=== PATIENT | male | born 1955 | race African-American/Black ===

== ENCOUNTER → 2019-03-29 | Outpatient (CLI) | payer BC ==
--- NOTE | 2019-03-29 13:55 | PCVCIMAG ---
APPROVED REPORT Study performed: 03/29/2019 11:00:50 EXAM: Comprehensive 2D, Doppler, and color-flow Echocardiogram Patient Location: Echo lab Room #: 3Status: routine BSA: 1.64 HR: 54 bpmBP: 134/70 mmHg Rhythm: NSR Other Information Study Quality: Good Risk Factors: Cardiac Risk Factors: Hyperlipidemia, HTN, Smoking Indications CAD Cardiomyopathy Hypertension/HDD ESRD 2D Dimensions IVSd: 16.89 (7-11mm)LVOT Diam: 20.00 (18-24mm) LVDd: 35.05 mm PWd: 15.50 (7-11mm)Ascending Ao: 28.96 (22-36mm) LVDs: 22.20 (25-40mm) Left Atrium: 30.95 (27-40mm) Aortic Root: 31.57 mm LV Single Plane 4CH: 57.20 % LV Single Plane 2CH: 57.69 % Biplane EF: 59.2 % Volumes Left Atrial Volume (Systole) Single Plane 4CH: 45.29 mLSingle Plane 2CH: 59.58 mL LA ESV Index: 36.00 mL/m2 Aortic Valve AoV Peak Ramirez.: 1.86 m/s AO Peak Gr.: 13.88 mmHgLVOT Max P.78 mmHg LVOT Max V: 1.09 m/s CHING Vmax: 1.75 cm2 AI Vmax: 4.41 m/s AI Crowley: 0.89 m/s2 AI PHT: 1531.12 ms Mitral Valve E/A Ratio: 0.9 MV Decel. Time: 259.26 ms MV E Max Ramirez.: 0.68 m/s MV A Ramirez.: 0.73 m/s IVRT: 65.74 ms TDI E/Lateral E': 11.33E/Medial E': 17.00 Medial E' Ramirez.: 0.04 m/s Lateral E' Ramirez.: 0.06 m/s Pulmonary Valve PV Peak Ramirez.: 0.57 m/sPV Peak Gr.: 1.32 mmHg Pulmonary Vein P Vein S: 0.63 m/sP Vein A: 0.32 m/s P Vein D: 0.48 m/sP Vein A Dur.: 86.5 msec P Vein S/D Ratio: 1.31 Tricuspid Valve TR Peak Ramirez.: 2.18 m/sRAP Estimate: 7.00 mmHg TR Peak Gr.: 18.93 mmHg PA Pressure: 26.00 mmHg Left Ventricle The left ventricle is normal size. There is normal LV segmental wall motion. Severe concentric left ventricular hypertrophy. Left ventricular systolic function is normal. The left ventricular ejection fraction is within the normal range. LVEF is 55%. The left ventricular diastolic function is normal. Right Ventricle The right ventricle is normal size. The right ventricular systolic function is normal. Atria Left atrium is mildly dilated. The right atrium size is normal. Aortic Valve The Aortic valve is sclerotic. Mild aortic regurgitation. There is no aortic valvular stenosis. Mitral Valve The mitral valve is normal in structure. Trace mitral regurgitation. No evidence of mitral valve stenosis. Tricuspid Valve The tricuspid valve is normal in structure. Trace tricuspid regurgitation. Pulmonary artery pressure is 26 mmHg. Pulmonic Valve The pulmonary valve is normal in structure. There is no pulmonic valvular regurgitation. Great Vessels The aortic root is normal in size. The ascending aorta is normal in size. IVC is normal in size and collapses >50% with inspiration. Pericardium There is no pericardial effusion. <Conclusion> The left ventricle is normal size. Severe concentric left ventricular hypertrophy. LVEF is 55%. The left ventricular diastolic function is normal. The right ventricle is normal size. Left atrium is mildly dilated. The Aortic valve is sclerotic. Mild aortic regurgitation. Trace mitral regurgitation. Trace tricuspid regurgitation. Pulmonary artery pressure is 26 mmHg. The aortic root is normal in size. There is no pericardial effusion.
== END | disposition home or self-care (01) ==
LOC: PCVCIMAG 11:03
PROVIDERS: ATTEND Internal Medicine Cardiovascular Disease
DX: I34.0 Nonrheumatic mitral (valve) insufficiency (principal); I34.8 Other nonrheumatic mitral valve disorders; I25.10 Atherosclerotic heart disease of native coronary artery without angina pectoris; I42.9 Cardiomyopathy, unspecified; I12.0 Hypertensive chronic kidney disease with stage 5 chronic kidney disease or end stage renal disease; N18.6 End stage renal disease
CPT/HCPCS: 93306